=== PATIENT | female | born 1990 | race Caucasian/White ===

== ENCOUNTER 2021-02-03 12:30 | Inpatient (IN) | payer OTHER ==
[~2021-02-03] VITALS: Ht 170.2 cm; Wt 79.4 kg
== END 2021-02-06 17:03 | disposition home or self-care (01) | DRG 743 ==
LOC: EDSTATUS 12:30 → ADM 12:30 → O/R 02-04 06:50 → OB/GYN 02-04 06:50 → SURH 02-04 07:00 → OB/GYN 02-04 13:09
PROVIDERS: ADMIT Specialist; ATTEND Specialist
PROC: 0UB90ZZ Excision of Uterus, Open Approach (ICD-10-PCS; principal; 2021-02-04 07:00)
DX: D25.2 Subserosal leiomyoma of uterus (principal); R19.00 Intra-abdominal and pelvic swelling, mass and lump, unspecified site